=== PATIENT | female | born 1960 | race Caucasian/White ===

== ENCOUNTER 2019-09-03 22:37 | Emergency (ER) | payer OTHER ==
--- NOTE | 2019-09-03 23:17 | EDM.PDOC ---
ED HPI GENERAL MEDICAL PROBLEM - General Chief Complaint: Cardiovascular Problem Stated Complaint: CHEST PAIN Time Seen by Provider: 09/03/19 23:00 Source of Information: Reports: Patient, Family History Limitations: Reports: No Limitations - History of Present Illness INITIAL COMMENTS - FREE TEXT/NARRATIVE: Susi comes into [facility] ED with continuous L anterior upper chest pains since midmorning, characterized as a 5/10. Sxs were not migratory, nonpositional, no identified aggravating or alleviating factors, and did not interfere with household work performed. There was no lt headiness, sweats, SOB or barbara palpitations. Of interest was an ED visit in 2013 for atypical chest pain, and a medical work up in [facility] about 15 years ago for atypical chest pain characterized as probable fibromyalgia. She does not take analgesics for daily sxs. Left Upper Chest Pain Score (Numeric/FACES): 5 - Related Data Allergies Allergy/AdvReac Type Severity Reaction Status Date / Time No Known Allergies Allergy Verified 09/03/19 22:57 Home Meds: Home Meds Aspirin 325 mg PO DAILY 12/11/13 [History] Calcium Carbonate/Vitamin D3 [Calcium 600-Vit D3 800 Tablet] 1 tab PO BID [History] Celecoxib [CeleBREX] 200 mg PO BID PRN 09/03/19 [History] Glucosam/Chond/Collagen/Hyalur [Glucosamine Chondroitin] 1 cap PO BID 09/03/19 [ History] Iron 65 mg PO DAILY 09/03/19 [History] Krill Oil 1 cap PO DAILY 09/03/19 [History] Multivitamin [Multi-Vitamin Daily] 1 tab PO DAILY 09/03/19 [History] Propranolol HCl [Propranolol HCl ER] 120 mg PO DAILY 09/03/19 [History] Ranitidine HCl 150 mg PO BID 09/03/19 [History] SUMAtriptan Succinate [Imitrex] 50 mg PO Q4HR PRN 09/03/19 [History] Simvastatin 20 mg PO DAILY 09/03/19 [History] Topiramate 50 mg PO DAILY 09/03/19 [History] ED ROS GENERAL - Review of Systems Review Of Systems: See Below Constitutional: Reports: No Symptoms HEENT: Reports: No Symptoms Respiratory: Reports: No Symptoms Cardiovascular: Reports: Chest Pain, Blood Pressure Problem Endocrine: Reports: No Symptoms GI/Abdominal: Reports: No Symptoms : Reports: No Symptoms Musculoskeletal: Reports: Shoulder Pain (left chronic and intermittent) Skin: Reports: No Symptoms Neurological: Reports: No Symptoms Psychiatric: Reports: No Symptoms Hematologic/Lymphatic: Reports: No Symptoms Immunologic: Reports: No Symptoms ED EXAM, GENERAL - Physical Exam Exam: See Below Exam Limited By: No Limitations General Appearance: Alert, WD/WN, No Apparent Distress, Anxious Eye Exam: Bilateral Eye: EOMI, Normal Inspection, PERRL Ears: Normal External Exam Nose: Normal Inspection Throat/Mouth: Normal Inspection, Normal Oropharynx Neck: Normal Inspection, Supple, Non-Tender, Full Range of Motion Respiratory/Chest: No Respiratory Distress, Lungs Clear, Normal Breath Sounds, No Accessory Muscle Use, Chest Non-Tender Cardiovascular: Regular Rate, Rhythm, No Murmur GI/Abdominal: Normal Bowel Sounds, Soft, Non-Tender, No Organomegaly, No Distention, No Mass (Female) Exam: Deferred Rectal (Female) Exam: Deferred Back Exam: Normal Inspection Extremities: Normal Inspection Neurological: Alert, Oriented, CN II-XII Intact, Normal Cognition, Normal Gait, No Motor/Sensory Deficits Psychiatric: Normal Affect, Normal Mood Skin Exam: Warm, Dry, Intact, Normal Color Lymphatic: No Adenopathy Course - Vital Signs Text/Narrative:: Following assessment, Susi remained monitored during ED visit, BPs varied 160s/90-100s, and I suggested home monitoring. Screening labs, ekg, and chest x ray were all baseline. No meds were administered. Sxs were improved at time of discharge. Last Recorded V/S: Last Vital Signs Temp 36.7 C 09/03/19 22:45 Pulse 68 09/03/19 22:45 Resp 18 09/03/19 22:45 BP 160/98 H 09/03/19 22:45 Pulse Ox 99 09/03/19 22:45 - Orders/Labs/Meds Orders: Active Orders 24 hr Category Date Time Status EKG Documentation Completion [RC] ASDIRECTED Care 09/03/19 23:13 Active Chest 1V Frontal [CR] Stat Exams 09/03/19 23:12 Taken EKG 12 Lead [EK] Routine Ther 09/03/19 23:12 Ordered Labs: Laboratory Tests 09/03/19 09/03/19 09/03/19 Range/Units 23:30 23:30 23:30 WBC 4.8 (4.5-12.0) X10-3/uL RBC 4.16 (3.23-5.20) x10(6)uL Hgb 12.3 (11.5-15.5) g/dL Hct 36.4 (30.0-51.3) % MCV 87.4 (80-96) fL MCH 29.5 (27.7-33.6) pg MCHC 33.8 (32.2-35.4) g/dL RDW 13.6 (11.5-15.5) % Plt Count 202 (125-369) X10(3)uL MPV 8.1 (7.4-10.4) fL Neut % (Auto) 63.2 (46-82) % Lymph % (Auto) 23.7 (13-37) % Nobles % (Auto) 8.9 (4-12) % Eos % (Auto) 4 (1.0-5.0) % Baso % (Auto) 1 (0-2) % Neut # (Auto) 3.1 (1.6-8.3) # Lymph # (Auto) 1.1 (0.6-5.0) # Nobles # (Auto) 0.4 (0.0-1.3) # Eos # (Auto) 0.2 (0.0-0.8) # Baso # (Auto) 0.0 (0.0-0.2) # ESR 7 (0-20) mm/hr Sodium 141 (135-145) mmol/L Potassium 3.9 (3.5-5.3) mmol/L Chloride 107 (100-110) mmol/L Carbon Dioxide 25 (21-32) mmol/L BUN 20 H (7-18) mg/dL Creatinine 1.0 (0.55-1.02) mg/dL Est Cr Clr Drug Dosing 55.31 mL/min Estimated GFR (MDRD) 56 L (>60) BUN/Creatinine Ratio 20.0 (9-20) Glucose 116 (80-116) mg/dL Calcium 8.9 (8.6-10.2) mg/dL Troponin I < 0.017 L (<0.017-0.056) ng/mL C-Reactive Protein < 0.2 L (0.5-0.9) mg/dL Departure - Departure Time of Disposition: 00:11 Disposition: Home, Self-Care 01 Condition: Good Clinical Impression: Atypical chest pain Instructions: Nonspecific Chest Pain, [id number] Referrals: Cynthia Tolbert [employer] [Primary Care Provider] - Forms: ED Department Discharge - Problem List & Annotations (1) Atypical chest pain SNOMED Code(s): 430768910 Code(s): R07.89 - OTHER CHEST PAIN Status: Acute Current Visit: Yes Annotation/Comment:: I suggested BP home monitoring, analgesic of choice for atypical chest pain. - Problem List Review Problem List Initiated/Reviewed/Updated: Yes - My Orders Last 24 Hours: My Active Orders 09/03/19 23:12 Chest 1V Frontal [CR] Stat EKG 12 Lead [EK] Routine 09/03/19 23:13 EKG Documentation Completion [RC] ASDIRECTED - Assessment/Plan Last 24 Hours: My Active Orders 09/03/19 23:12 Chest 1V Frontal [CR] Stat EKG 12 Lead [EK] Routine 09/03/19 23:13 EKG Documentation Completion [RC] ASDIRECTED Plan: Follow up with PCP if needed.
--- NOTE | 2019-09-04 10:48 | CR ---
INDICATION: Atypical chest pain. CHEST: An AP wheelchair view of the chest was obtained upright, 09/03/19, and compared with 08/14/09. Overlying EKG leads are noted. Apparel is noted overlying the chest. The heart remains normal in size and shape. The aortic knob is minimally prominent and slightly increased in prominence, compared with the previous study. A linear density in the lower middle lung field on the right most likely represents a vascular structure. No active infiltrate or effusion was identified with pulmonary markings otherwise unchanged from the previous study. Evidence of exogenous obesity is noted. IMPRESSION: No acute process. MTDD
== END 2019-09-04 00:23 | disposition home or self-care (01) ==
LOC: FB.ED 22:37
DX: R07.89 Other chest pain (principal)
CPT/HCPCS: 36415; 71045; 80048; 84484; 85025; 85651; 86140; 93005; 99285-25